=== PATIENT | female | born 1995 | race African-American/Black ===

== ENCOUNTER 2018-05-25 09:02 | Emergency (ER) | payer MEDICAID ==
[2018-05-25] MEDS ORDERED: traMADol 50 MG Tab PO ONE (09:32)
--- NOTE | 2018-05-25 09:34 | EDM.PDOC ---
ED HPI GENERAL MEDICAL PROBLEM - General Chief Complaint: ENT Problem Stated Complaint: Tooth pain Time Seen by Provider: 05/25/18 09:19 Source of Information: Reports: Patient History Limitations: Reports: No Limitations - History of Present Illness INITIAL COMMENTS - FREE TEXT/NARRATIVE: Patient presents with 5 day history of right lower jaw pain. Gun swelling noted. No fevers/chills. Has not tried to see a dentist. No drainage noted. No lymphadenopathy noted. No other acute complaints/changes reported. 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 ED EXAM, ENT - Physical Exam Exam: See Below Exam Limited By: No Limitations General Appearance: Alert, WD/WN, No Apparent Distress Eye Exam: Bilateral Eye: EOMI, PERRL Nose: No: Nasal Deformity, Nasal Discharge, Nasal Swelling Mouth/Throat: Other (Gum swelling noted near base of 1st molar right lower teeth. No acute drainage. Pressure on teeth in area trigger increased pain. No obvious dental cavity noted. ) Head: Atraumatic, Normocephalic. No: Facial Swelling Neck: Normal Inspection, Supple, Non-Tender, Full Range of Motion. No: Lymphadenopathy (L), Lymphadenopathy (R) Respiratory/Chest: No Respiratory Distress Neurological: Alert, Oriented, CN II-XII Intact, Normal Cognition, Normal Gait Psychiatric: Normal Affect, Normal Mood Skin: Warm, Dry, Intact, Normal Color Course - Vital Signs Last Recorded V/S: Last Vital Signs Temp 36.6 C 05/25/18 09:11 Pulse 86 05/25/18 09:11 Resp 16 05/25/18 09:11 BP 119/76 05/25/18 09:11 Pulse Ox 98 05/25/18 09:11 - Orders/Labs/Meds Meds: Medications Discontinued Medications Generic Name Dose Route Start Last Admin Trade Name Sandra PRN Reason Stop Dose Admin Clindamycin HCl 300 mg 05/25/18 09:36 05/25/18 09:39 Cleocin PO 05/25/18 09:37 300 mg ONETIME ONE Administration Tramadol HCl 50 mg 05/25/18 09:32 05/25/18 09:40 Ultram PO 05/25/18 09:33 50 mg ONETIME ONE Administration - Re-Assessments/Exams Free Text/Narrative Re-Assessment/Exam: Patient refused dental block. Given ER pack of Clindamycin as well as first dose of Clinda. Rx for additional Clinda sent to patient's pharmacy. Single dose of Tramadol also given. Patient to continue to use Ibuprofen OR Aleve (not both) and Tylenol to help with pain. To follow up with her dentist (she says that she has a dentist she can go to) this week for definitive care. To follow up otherwise as needed if there are further problems. Departure - Departure Time of Disposition: 09:50 Disposition: Home, Self-Care 01 Condition: Good Clinical Impression: Dental infection - Discharge Information *PRESCRIPTION DRUG MONITORING PROGRAM REVIEWED*: Not Applicable *COPY OF PRESCRIPTION DRUG MONITORING REPORT IN PATIENT CAL: Not Applicable Prescriptions: Clindamycin HCl 300 mg PO Q6H #16 capsule Referrals: Celai Anthony PA-C [Primary Care Provider] - Forms: ED Department Discharge Additional Instructions: Take Clindamycin 300mg every 6 hours for 7 days. Discontinue if you have signs of allergy. The first few pills were given to you in the ER. 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 Make an appointment to see a dentist this week so that they can identify the source of the infection and treat it definitively. Follow up otherwise as needed if you have problems.
[2018-05-25] MEDS ORDERED: Clindamycin HCl 150 MG Cap PO ONE (09:36)
== END 2018-05-25 09:50 | disposition home or self-care (01) ==
LOC: LL.ED 09:02
DX: K04.7 Periapical abscess without sinus (principal); Z88.1 Allergy status to other antibiotic agents
CPT/HCPCS: 99282; A9270-GY